=== PATIENT | female | born 1975 | race Caucasian/White ===

== ENCOUNTER 2017-11-29 16:59 | Emergency (ER) | payer MEDICARE, MEDICAID ==
[2017-11-29 18:44] VITALS: BP 110/88
--- NOTE | 2017-11-29 19:27 | UC ---
Ear Complaint HPI - HPI Summary HPI Summary: 42 y/o female w/ PMHX IDD presents to the urgent care accompany by social work therapist c/o left ear pain w/ drainage and mild dry cough. liner worker is unsure when symptoms started since she was told to bring her to the clinic. liner worker states Pt had RT ankle surgery s/p fracture on 11/05/2017. Pt is on wheel chair, non weight bearing. She had a change in cast about 1 week ago and ankle is healing well. Pt has taken tylenol PO to alleviate symptoms and last dose taken at 1200pm. liner worker denies fever, SOB, chest pain, abdominal pain, N/V/D. Pt is PCN allergic, but social work therapist uncertain of what kind of reaction. - History of Current Complaint Chief Complaint: UCGeneralIllness Stated Complaint: FEVER,EAR PAIN Time Seen by Provider: 11/29/17 19:24 Hx Obtained From: Patient, Family/Land Use Planner - care home social work therapist Hx Last Menstrual Period: on Depo Provera Onset/Duration: Gradual Onset, Other - social work therapist uncertain of onset of symptoms Severity Initially: Mild Severity Currently: Moderate Pain Intensity: 0 Pain Scale Used: unable to describe Aggravating Factors: Other - touch Alleviating Factors: OTC Meds Associated Signs/Symptoms: Positive: URI Symptoms - Allergies/Home Medications Allergies/Adverse Reactions: Allergies Allergy/AdvReac Type Severity Reaction Status Date / Time Penicillins Allergy Unknown Verified 11/29/17 18:44 Reaction Details Home Medications: Home Medications Calcium Carbonate/Vitamin D3 [Caltrate 600 + D Soft Chew Tab] 1 chw PO DAILY [History Confirmed 11/29/17] Enoxaparin(*) [Lovenox(*)] 40 mg SUBCUT DAILY 11/29/17 [History Confirmed ] PMH/Surg Hx/FS Hx/Imm Hx Previously Healthy: Yes Other Endocrine History: Osteopenia, Other Cardiovascular History: MR, TR Neurological History: Migraine Other Neurological History: IDD, hydrocephalus, Benign essential tremor, Psychological History: Anxiety - Surgical History Surgical History: None Surgery Procedure, Year, and Place: RT ankle surgery s/p fracture 11/05/2017 - Family History Known Family History: Positive: Unknown - Social 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 Alcohol Use: None Substance Use Type: None Smoking Status (MU): Never Smoked Tobacco - Immunization History Vaccination Up to Date: Yes Review of Systems Constitutional: Negative Skin: Negative Eyes: Negative ENT: Ear Ache - left ear pain w/ drainage Respiratory: Cough - dry Cardiovascular: Negative Gastrointestinal: Negative Genitourinary: Negative Motor: Negative Neurovascular: Negative Musculoskeletal: Negative Neurological: Negative Psychological: Negative Is Patient Immunocompromised?: No All Other Systems Reviewed And Are Negative: Yes Physical Exam - Summary Physical Exam Summary: Vital signs: reviewed General: well developed, well nourished female sitting i\on her wheel chair w/ RT ankle cast w/o any apparent pain distress Skin: [place], warm and dry, no evidence of atopic dermatitis, psoriasis, seborrhea. HEENT: -Head: atraumatic, non tender; no scalp dermatitis. -Eyes: sclera and conjunctiva clear, PERRLA, EOMI -Ears: no pre- or postauricular lymphadenopathy or erythema; LF external ear canal with erythema and yellowish purulent discharge, pinna tenderness on palpation, LF TM injected w/ erythema and white discharge. RT external ear canal w/ mild cerumenr and RT TM WNL. -Nose/Face: erythematous and edematous nasal mucosa with clear rhinorrhea, no frontal or maxillary sinus tender to palpation. -Mouth/Throat: Mucous membrane moist, posterior pharynx clear, no erythema or exudates. Neck: supple, FROM, nontender, no lymphadenopathy, no meningismus. Chest: Clear to auscultation, normal breath sounds Abd: soft, Bowel sounds active, Nontender. Back: no spinal or CVAT Neuro: A&O x4, GCS 15, normal behavior for age. Triage Information Reviewed: Yes Vital Signs: Initial Vital Signs Temp 99.2 F 11/29/17 18:40 Pulse 107 11/29/17 18:40 Resp 14 11/29/17 18:40 BP 110/88 11/29/17 18:40 Pulse Ox 96 11/29/17 18:40 Ear Complaint Course/Dx - Course Course Of Treatment: 42 y/o female w/ PMHX IDD presents to the urgent care accompany by social work therapist c/o left ear pain w/ drainage and mild dry cough. liner worker is unsure when symptoms started since she was told to bring her to the clinic. liner worker states Pt had RT ankle surgery s/p fracture on . Pt is on wheel chair, non weight bearing. She had a change in cast about 1 week ago and ankle is healing well. Pt has taken tylenol PO to alleviate symptoms and last dose taken at 1200pm. liner worker denies fever, SOB, chest pain, abdominal pain, N/V/D. Pt is PCN allergic, but social work therapist uncertain of what kind of reaction. Hx obtained. Pt w/ Acute left otitis media and externa on examination. Pt PCN allergic w/ unknown reaction. Pt taking Lexapro, Thus unable to Rx Z-adrian due to QT prolongation. Pt Rx Cefdinir PO and Ciprodex otic drops. First dose given at the clinic tonight to alleviate symptoms. Pt tolerated well medication. liner worker advised to continue w/ tylenol PO for pain. Advised if not improvement of symptoms to f/u w/ PCP for further evaluation and treatment. liner worker and PT understood and agreed w/ plan of care. - Differential Dx/Diagnosis Differential Diagnosis/HQI/PQRI: Cerumen Impaction, Otitis Externa, Otitis Media , Perforated TM, Pharyngitis, URI Provider Diagnoses: 1- Left acute otitis media. 2- Left acute otitis externa Discharge - Sign-Out/Discharge Documenting (check all that apply): Discharge - Discharge Plan Condition: Stable Disposition: HOME Prescriptions: Acetaminophen TAB* [Tylenol TAB*] 650 mg PO Q6H PRN #20 tab PRN Reason: otalgia Cefdinir [Cefdinir 300 MG CAP] 300 mg PO BID #14 capsule Ciproflox/Dexameth OTIC.SUSP* [Ciprodex Otic*] 1 drop .SEE ORDER BID #1 bottle Patient Education Materials: Otitis Externa (ED), Ear Infection (ED) Referrals: Ariadna Carrillo MD [Primary Care Provider] - 3 Days Additional Instructions: 1- Please give take the full course of the antibiotic to avoid resistance. 2-Please give PT Tylenol PO q6-8hrs prn as instructed after meals to alleviate pain and swelling. Increase fluid intake, eat well, rest 3-If symptoms do not improve or worsen please return to the urgent care or f/u with your PCP in 3 days for further evaluation and treatment. - Billing Disposition and Condition Condition: STABLE Disposition: HOME
[2017-11-29] MEDS ORDERED: Cefdinir 250mg/5 ml* 100 ml ORAL.SUSP PO ONE (20:07)
== END 2017-11-29 20:20 | disposition home or self-care (01) ==
LOC: UCCORT 16:59
DX: H66.92 Otitis media, unspecified, left ear (principal); H60.502 Unspecified acute noninfective otitis externa, left ear; Z88.0 Allergy status to penicillin; E11.9 Type 2 diabetes mellitus without complications; F79 Unspecified intellectual disabilities
CPT/HCPCS: 99212; G0463